=== PATIENT | female | born 1990 | race Caucasian/White ===

== ENCOUNTER 2022-03-13 11:35 | Day surgery (SDC) | payer OTHER ==
[2022-03-13] MEDS ORDERED: Depo-Medrol 40 MG/ML IM ONE (11:36)
[2022-03-13] MEDS ORDERED: LIDOCAINE HCL 1% 50 MG/5 ML VL PF IJ ONE (11:36)
[2022-03-13] MEDS ORDERED: BUPIVACAINE 0.5% VIAL IJ ONE (11:36)
--- NOTE | 2022-03-13 14:47 | XRAY ---
Indication: Right knee injection. Intraoperative fluoroscopy provided for 7 seconds. Single digital spot image submitted for interpretation demonstrates needle tip projecting over the right femur intercondylar notch. Small amount of contrast injected for needle tip basement. Correlate with intraoperative findings/report.
--- NOTE | 2022-03-13 14:49 | XRAY ---
Indication: Left knee injection. Intraoperative fluoroscopy provided for 7 seconds. Single digital spot image submitted for interpretation demonstrates needle tip projecting over the left femur intercondylar notch. Small amount of contrast injected for needle tip basement. Correlate with intraoperative findings/report.
--- NOTE | 2022-03-13 14:49 | XRAY ---
7 seconds of fluoroscopy was used in surgery for a right intra-articular knee injection.
--- NOTE | 2022-03-13 14:49 | XRAY ---
7 seconds of fluoroscopy was used in surgery for a left intra-articular knee injection.
== END 2022-03-13 12:48 | disposition home or self-care (01) ==
LOC: SDC-PAIN 11:35
PROVIDERS: ATTEND Psychiatry & Neurology Pain Medicine
DX: M17.0 Bilateral primary osteoarthritis of knee (principal); Z79.899 Other long term (current) drug therapy
CPT/HCPCS: 20610; 73560; 77002; 81025; J1030; J2001; Q9966

== ENCOUNTER 2022-09-18 15:14 | Day surgery (SDC) | payer OTHER ==
[2022-09-18] MEDS ORDERED: BUPIVACAINE 0.5% VIAL IJ ONE (15:15)
[2022-09-18] MEDS ORDERED: Depo-Medrol 40 MG/ML IM ONE (15:15)
[2022-09-18] MEDS ORDERED: LIDOCAINE HCL 1% 50 MG/5 ML VL PF IJ ONE (15:15)
[2022-09-18 15:24] LABS: HCG URINE TEST NEGATIVE (NEGATIVE)
--- NOTE | 2022-09-18 19:30 | XRAY ---
Indication: Left knee injection. Intraoperative fluoroscopy provided for 15 seconds. 2 digital spot image submitted for interpretation demonstrates needle tip projecting over the left femur intercondylar notch. Small amount of contrast injected for needle tip placement. Correlate with intraoperative findings/report.
--- NOTE | 2022-09-19 10:04 | XRAY ---
15 seconds of fluoroscopy was used in surgery for a left intra-articular knee injection.
== END 2022-09-18 16:50 | disposition home or self-care (01) ==
LOC: SDC-PAIN 15:14
PROVIDERS: ATTEND Psychiatry & Neurology Pain Medicine
DX: M17.12 Unilateral primary osteoarthritis, left knee (principal); Z79.899 Other long term (current) drug therapy
CPT/HCPCS: 20610; 73560; 77002; 81025; J1030; J2001; Q9966

== ENCOUNTER 2024-04-01 15:07 | Day surgery (SDC) | payer OTHER ==
[2024-04-01] MEDS ORDERED: LIDOCAINE HCL 1% 50 MG/5 ML VL IJ ONE (15:08)
[2024-04-01] MEDS ORDERED: BUPIVACAINE 0.5% VIAL IJ ONE (15:08)
[2024-04-01] MEDS ORDERED: methylPREDNISolone acetate IM ONE (15:08)
[2024-04-01 16:02] LABS: HCG URINE TEST NEGATIVE (NEGATIVE)
--- NOTE | 2024-04-02 08:40 | XRAY ---
Indication: Left knee injection. Intraoperative fluoroscopy provided for 6 seconds. Single digital spot image submitted for interpretation demonstrates needle tip projecting over left femur intercondylar notch. Small amount of contrast injected for needle placement. Correlate with intraoperative findings/report.
--- NOTE | 2024-04-02 08:40 | XRAY ---
Indication: Right knee injection. Intraoperative fluoroscopy provided for 7 seconds. Single digital spot image submitted for interpretation demonstrates needle tip projecting over right femur intercondylar notch. Small amount of contrast injected for needle placement. Correlate with intraoperative findings/report.
--- NOTE | 2024-04-02 09:42 | XRAY ---
6 seconds of fluoroscopy were used in surgery for a left intra-articular knee injection.
--- NOTE | 2024-04-02 09:42 | XRAY ---
7 seconds of fluoroscopy were used in surgery for a right intra-articular knee injection.
== END 2024-04-01 17:48 | disposition home or self-care (01) ==
LOC: SDC-PAIN 15:07
PROVIDERS: ATTEND Psychiatry & Neurology Pain Medicine
DX: M17.0 Bilateral primary osteoarthritis of knee (principal)
CPT/HCPCS: 20610; 73560; 77002; 81025; J1010; Q9966